=== PATIENT | male | born 1975 | race Caucasian/White ===

== ENCOUNTER 2024-08-01 20:33 | Observation (INO) | payer OTHER, SELFPAY ==
[2024-08-01] VITALS (8 sets, daily range): BP systolic 118–170; BP diastolic 85–102; BMI 28.8; BMI 29.6
--- NOTE | 2024-08-01 16:21 | ED.GENMED ---
History of Present Illness
General
Chief Complaint: Fever
Source: patient
Exam Limitations: none
Time Seen by Provider: 08/01/24 15:54
Nursing documentation reviewed up to this point in time: agreed with
History of Present Illness
History of Present Illness:
pt is a 48 y/o M with no chronic medical problems
9 days fever, congestion, cough, sore throat, fatigue, bodyaches
last temp was 102 this am at 9 am and he took motrin
he has no significant sob or pleuritic pain
[facility] and pulse ox was 92% and he was sent here
denies vomiting/diarrhea
having some sputum which is yelliwhs/brown
feels rattling in his chest
Past History
Past History
ED Past Medical History: None
ED Past Surgical History: None
Social History
Tobacco: Non-smoker
Alcohol: None
Drug: None
Personal:
Living: with family
Review of Systems
Review of Systems
Allergies reviewed?: Yes
All Other Systems: Not applicable
Phy Exam
Physical Exam
Physical Exam:
GENERAL: Alert , in no apparent distress, looks well
EYE: pupils equal and reactive
NECK: Supple
ENT: b/l TM s clear, pharynx erythematous but no tonsillar hypertrophy or exudates
CARDIAC: Regular rate and rhythm, no edema
LUNGS: rales bases b/l; occ wheezy cough; no resp distress; no tachypnea
ABDOMEN: Soft, without focal tenderness, no r/g, no cvat, normal bowel sounds
NEUROLOGICAL: Alert and oriented, no focal neuro deficits
SKIN: Warm and dry, skin intact.
MUSCULOSKELETAL: No edema, well perfused.
PSYCH: Normal and appropriate interaction.
Course
Orders/Labs/Results
Orders:
Orders
08/01/24 Dinner
Regular
At Your Request: Full Participation
08/01/24 15:54
Chest [CR Chest - 2 Views ] Urgent
Comment:
Reason For Exam: cough, SOB
08/01/24 16:05
COVID-19 Antigen Urgent
Source: Nasal Swab
Complete Blood Count/With Diff Urgent
Comprehensive Metabolic Panel Urgent
Lactate Level [Lactic Acid] Urgent
INF RAPID [Influenza A+B Rapid Molecular] Urgent
ENA Source: Nasal Swab
Specimen Description:
08/01/24 16:10
EKG [Electrocardiogram (*1)] Urgent
Reason for Study: Fatigue / Weakness
EKG- Treatment ONCE
D-Dimer Urgent
08/01/24 18:36
Acetaminophen [Tylenol] 1,000 mg PO NOW STA
Ibuprofen [Motrin] 800 mg PO NOW STA
08/01/24 18:37
Amoxicillin 875 mg/Clav 125 mg [Augmentin 875 mg/125 mg] 1 tablet PO NOW STA
Azithromycin [Zithromax] 500 mg PO NOW STA
08/01/24 18:46
Blood Culture Urgent
ENA Source: Blood/Venous
Specimen Description:
08/01/24 19:02
Albuterol Nebs [Ventolin Nebules] 2.5 mg INH R NOW STA
08/01/24 20:19
Admit/Transfer Patient As Directed
Co-Sign Provider:
Level of Care: Observation services
Assign to:: Medical/Surgical
Physician / Group: yovany
Diagnosis: sepsis viral/bacterial bronchitis
PRN Pain Medication Management As Directed
May give lesser potent ordered pain med per pt: Yes
preference::
Protocol:: Medication orders for pain may be administered in a
manner that supports deferring to patient preference
when the pt is:
- Requesting an ordered lesser potent pain medication.
Least to most potent pain medications are defined
as: acetaminophen < NSAID < tramadol < opioids
(morphine, oxycodone, hydromorphone).
- Requesting a lesser dose of the same medication IF
ORDERED.
- Requesting a less intrusive route of administration
if both routes are prescribed by the provider (PO <
IV).
08/01/24 20:21
Code Status As Directed
Resuscitation Status: Full Code
08/01/24 21:09
0.9% Sodium Chloride 1000 ml [Nss] 1,000 ml IV 100 mls/hr
Acetaminophen [Tylenol] 650 mg PO Q4HPRN PRN
Guaifenesin [Mucinex] 1,200 mg PO Q12
Ibuprofen [Motrin] 400 mg PO Q6HPRN PRN
Pantoprazole [Protonix] 40 mg PO DAILYPRN PRN
08/01/24 21:09
Activity As Directed
Activity Level: As Tolerated
Vital Signs As Directed
Frequency: Per unit guidelines
DX Deep Vein Thrombosis Video Routine
08/01/24 21:56
Respiratory Culture/Gram Stain Urgent
ENA Source: Sputum
Specimen Description:
Date Specimen was Collected: 08/01/24
Time Specimen was Collected: 21:54
08/01/24 22:00
CefTRIAXone [Rocephin] 1,000 mg IV Q24H
08/02/24 07:35
Complete Blood Count/With Diff IN AM
Comprehensive Metabolic Panel IN AM
08/02/24 08:00
Heparin 5,000 units SC Q12
08/02/24 18:00
Azithromycin 500 mg/250 ml [Zithromax Infusion] 500 mg in 250 ml IV Q24H
Abnormal Lab Results
08/01/24
16:05
WBC 13.0 H 10^3/uL
(4.8-10.8)
Abs Immat Gran (auto) 0.1 H 10^3/uL
(0-0.05)
Absolute Neuts (auto) 9.0 H 10^3/uL
(1.4-6.5)
Absolute Monos (auto) 1.6 H 10^3/uL
(0.1-0.6)
Immature Gran % 0.8 H %
(0-0.5)
Lymphocytes % 16.6 L %
(20.5-51.1)
Monocytes % 12.6 H %
(1.7-9.3)
08/01/24 16:05
08/01/24 16:05
Vital Signs
Initial and Last Documented VS:
Initial Vital Signs
Temp Pulse Resp BP Pulse Ox
37.4 C 108 16 170/102 94
08/01/24 14:21 08/01/24 14:21 08/01/24 14:21 08/01/24 14:21 08/01/24 14:21
Last Documented Vital Signs
Temp Pulse Resp BP Pulse Ox
37.8 C 104 18 120/84 95
08/02/24 15:13 08/02/24 15:13 08/02/24 15:13 08/02/24 15:13 08/02/24 15:13
MDM/Problems Addressed
Differential Diagnosis Includes:
pna, PE, bacteremia, reactive airway
MDM/Problems Addressed:
48 y/o M no pmh
9 days of fevers he says, cough, cold sypmtoms
temp this mornig n102, treated with motrin
came afebrile but low pulse ox 91% no resp distress
crackles b/l, wheezes
then spike dtemp while here
cxr is not impressive at all but he clinically looks like pna; flu and covid neg
wbc 13
he was already given oral augmentin and azithro in anticipation for discharge but he is hypoxic when he walks and still febrile desptie meds and fluids; blood culture sent
*Critical Care Note
Total Time (30-74mins, 75-104mins- exclusive of procedures): Not Applicable
ED Attending Note
-
Portions of this chart may have been created with voice recognition software.� Occasional wrong word or��sound alike� substitutions may have occurred due to the inherent limitations of voice recognition software.
Discharge Plan
Departure
Patient Disposition: Admit
Date of Disposition: 08/01/24
Time of Disposition: 19:53
Admit to: Med/Surg
Presentation/result/management discussed w/ accepting MD/DO: Hospitalist
Condition: Fair
Covid-19: Negative COVID-19
Discharge Problem:
Pneumonia, Hypoxia
Interventions
Interventions:
*Risk Screen - Suicide Last Done: 08/01/24 14:26
*General Assessment Last Done: 08/01/24 17:26
*Neglect/Abuse Screening Last Done: 08/01/24 14:26
ED- Fall Risk Assessment Last Done: 08/01/24 21:12
*ED COVID-19 Vaccine History Last Done: 08/01/24 17:27
*Nursing Disposition Last Done: 08/01/24 21:12
ED- Neurological Assessment Last Done: 08/01/24 16:09
ED-Skin Assessment Last Done: 08/01/24 17:31
Discharge Date and Time
Discharge Date/Time: 08/01/24 21:13
[2024-08-01 16:29] LABS: % Basophils 0.5 % (0-2); % Eosinophils 0.7 % (0-6); % Immature Granulocytes 0.8 % (0-0.5); % Lymphocytes 16.6 % (20.5-51.1); % Monocytes 12.6 % (1.7-9.3); % Neutrophils 68.8 % (42.2-75.2); Absolute Basophils 0.1 10^3/uL (0-0.2); Absolute Eosinophils 0.1 10^3/uL (0-0.7); Absolute Immature Granulocytes 0.1 10^3/uL (0-0.05); Absolute Lymphocytes 2.2 10^3/uL (1.2-3.4); Absolute Monocytes 1.6 10^3/uL (0.1-0.6); Hematocrit 45.3 % (39.0-52.0); Hemoglobin 15.5 g/dL (13.0-18.0); Mean Corp Hgb Conc. 34.2 g/dL (33.0-37.0); Mean Corpuscular Hgb 30.2 pg (27.0-31.0); Mean Corpuscular Volume 88.1 fL (80.0-94.0); Mean Platelet Volume 9.2 fL (7.4-10.4); Nucleated Red Blood Cells % 0 % (-); Platelet Count 269 10^3/uL (130-400); Red Blood Cell Count 5.14 10^6/uL (4.70-6.10); Red Cell Dist. Width 12.9 % (11.5-14.5)
[2024-08-01 16:34] LABS: Lactic Acid 1.2 mmol/L (0.7-2.0)
[2024-08-01 16:42] LABS: ALT (SGPT) 34 U/L (0-50); AST (SGOT) 23 U/L (17-59); Albumin 4.1 g/dl (3.5-5.0); Alkaline Phosphatase 83 U/L (38-126); Blood Urea Nitrogen 16 mg/dl (9-20); Calcium 8.9 mg/dl (8.4-10.2); Carbon Dioxide 28 mmol/L (22-30); Chloride 102 mmol/L (98-107); Estimated Creatinine Clearance 83 ml/min; Glucose 83 mg/dl (70-99); Potassium 4.4 mmol/L (3.5-5.1); Sodium 140 mmol/L (135-145); Total Bilirubin 0.3 mg/dl (0.2-1.3); Total Protein 6.9 g/dl (6.3-8.2); eGFR > 60.00
[2024-08-01 16:53] LABS: COVID-19 Antigen Negative (Negative)
[2024-08-01 17:53] LABS: D-Dimer 0.42 ug/mlFEU (0.00-0.50)
[2024-08-01] MEDS: MOTRIN 800 MG PO (18:43)
[2024-08-01] MEDS: TYLENOL 1000 MG PO (18:44)
[2024-08-01] MEDS: AUGMENTIN 875 MG/125 MG 1 TABLET PO (18:44)
[2024-08-01] MEDS: ZITHROMAX 500 MG PO (18:44)
[2024-08-01] MEDS: VENTOLIN NEBULES 2.5 MG INH (19:13)
--- NOTE | 2024-08-01 20:24 | HPS.HSE ---
Family Physician
-
Family Physician: NOT KNOW UNKNOWN - PT DOES
Chief Complaint
-
fevers
History of Present Illness
48-year-old male without past medical history presenting with 9 days of fever, congestion, cough and sore throat and fatigue and bodyaches. He had temperature of 102 this morning. He is short of breath and has chest congestion and pressure when he
breathes in. He went to urgent care and his pulse ox was 92%. He denies nausea vomiting or diarrhea. He is having some productive sputum which is yellow and brown. He did have sore throat within the first few days but this has resolved.
Denies any history of cardiac or pulmonary problems
His spouse and kids also had a similar illness but milder.
Denies smoking or alcohol use.
Medical History
Past Medical History
Past Medical History: Reports None
Past Surgical History: Reports None
Social History
Tobacco: Non-smoker
Alcohol: None
Drug: None
Family History
Family History: Not pertinent
Allergies / Home Medications
Allergies reflects when Allergies were last updated in [employer].
Home Medications with original date entered in [employer]
Allergy/Medication List:
Allergies
Allergy/AdvReac Type Severity Reaction Status Date / Time
No Known Allergies Allergy Unverified 08/01/24 14:25
Home Medications
pantoprazole 40 mg tablet,delayed release 40 mg PO DAILYPRN PRN gerd 08/01/24
Review of Systems
-
History Source: Patient
A 12 point ROS was completed and negative except as noted: Yes
Constitutional: Reports No Symptoms
EENT: Reports No Symptoms
Respiratory: Reports See HPI
Cardiac: Reports No Symptoms
Abdomen/GI: Reports No Symptoms
: Reports No Symptoms
Musculoskeletal: Reports No Symptoms
Skin: Reports No Symptoms
Neurological: Reports No Symptoms
Endocrine: Reports No Symptoms
Hematologic/Lymphatic: Reports No Symptoms
Psych: Reports No Symptoms
Physical Exam
Vital Signs
Vital Signs
Temp Pulse Resp BP Pulse Ox
101.2 F H 107 22 133/85 93
08/01/24 19:54 08/01/24 20:01 08/01/24 20:01 08/01/24 20:01 08/01/24 20:01
Physical Exam
General: Well Developed, Well Nourished and No Apparent Distress
HEENT: NormoCephalic, Moist mucous membranes and Atraumatic
Respiratory: Clear
Cardiac: S1/S2 and Regular Rhythm; No Murmur or Rub
GI: Soft, Non Tender, Non Distended and Normal Bowel Sounds; No Organomegaly
Rectal: Deferred by Provider
Musculoskeletal: No Clubbing, No Cyanosis and No Edema
Skin: No Rash
Neuro: Nonfocal/grossly intact
Laboratory Results
-
08/01/24 16:05
08/01/24 16:05
Laboratory Results
Lactic Acid 1.2 mmol/L (0.7-2.0) 08/01/24 16:05
Total Bilirubin 0.3 mg/dl (0.2-1.3) 08/01/24 16:05
AST 23 U/L (17-59) 08/01/24 16:05
ALT 34 U/L (0-50) 08/01/24 16:05
Alkaline Phosphatase 83 U/L (38-126) 08/01/24 16:05
Data Reviewed
-
Lab Data: Labs Reviewed by me
Old Records: Reviewed
Impression/Plan
-
IMPRESSION:
PLAN:
# Sepsis (fever, tachycardia, leukocytosis) secondary to viral/bacterial PNA/bronchitis
-Patient with hypoxia
-Chest x-ray unremarkable
-D-dimer negative
-COVID and influenza negative
-Sputum culture
-Check blood cultures
-IV fluids
-Ceftriaxone/azithromycin
Full code
DVT prophylaxis�heparin
Regular diet
--- NOTE | 2024-08-01 21:14 | PTCARENOTE ---
Pt arrived to floor from ED via stretcher on 2LNC. Pt ambulated to bed with a stable gait. at bedside. VSS. Pt oriented to room, call bed with in reach. WIll review and follow plan of care.
[2024-08-01] MEDS: NSS 1000 IV (21:51)
[2024-08-01] MEDS: MUCINEX 1200 MG PO (21:51)
[2024-08-01] MEDS: STERILE WATER FOR INJECTION 10 ML IV (21:52)
[2024-08-01] MEDS: ROCEPHIN 1000 MG IV (21:53)
[2024-08-02] MEDS: TYLENOL 650 MG PO (04:59)
[2024-08-02 07:10] VITALS: BP 132/85
[2024-08-02] MEDS: HEPARIN 5000 UNITS SC ×2 (07:36→20:22)
[2024-08-02] MEDS: MUCINEX 1200 MG PO ×2 (07:36→20:23)
[2024-08-02 07:52] LABS: % Basophils 0.5 % (0-2); % Eosinophils 1.4 % (0-6); % Immature Granulocytes 0.7 % (0-0.5); % Lymphocytes 14.4 % (20.5-51.1); % Monocytes 9.4 % (1.7-9.3); % Neutrophils 73.6 % (42.2-75.2); Absolute Basophils 0.1 10^3/uL (0-0.2); Absolute Eosinophils 0.2 10^3/uL (0-0.7); Absolute Immature Granulocytes 0.1 10^3/uL (0-0.05); Absolute Lymphocytes 1.9 10^3/uL (1.2-3.4); Absolute Monocytes 1.2 10^3/uL (0.1-0.6); Absolute Neutrophils 9.4 10^3/uL (1.4-6.5); Hematocrit 43.4 % (39.0-52.0); Hemoglobin 14.7 g/dL (13.0-18.0); Mean Corp Hgb Conc. 33.9 g/dL (33.0-37.0); Mean Corpuscular Hgb 29.6 pg (27.0-31.0); Mean Corpuscular Volume 87.5 fL (80.0-94.0); Mean Platelet Volume 8.6 fL (7.4-10.4); Nucleated Red Blood Cells % 0 % (-); Platelet Count 264 10^3/uL (130-400); Red Blood Cell Count 4.96 10^6/uL (4.70-6.10); Red Cell Dist. Width 12.9 % (11.5-14.5); White Blood Cell Count 12.8 10^3/uL (4.8-10.8)
[2024-08-02 08:18] LABS: ALT (SGPT) 31 U/L (0-50); AST (SGOT) 24 U/L (17-59); Albumin 3.8 g/dl (3.5-5.0); Alkaline Phosphatase 89 U/L (38-126); Blood Urea Nitrogen 13 mg/dl (9-20); Calcium 8.3 mg/dl (8.4-10.2); Carbon Dioxide 24 mmol/L (22-30); Chloride 106 mmol/L (98-107); Estimated Creatinine Clearance 98 ml/min; Glucose 114 mg/dl (70-99); Potassium 4.4 mmol/L (3.5-5.1); Sodium 142 mmol/L (135-145); Total Bilirubin 0.4 mg/dl (0.2-1.3); Total Protein 6.7 g/dl (6.3-8.2); eGFR > 60.00
[2024-08-02] MEDS: NSS IV ×2 (08:41→16:14)
[2024-08-02] MEDS: TESSALON PERLES 200 MG PO ×2 (08:45→20:23)
--- NOTE | 2024-08-02 09:29 | CM ---
CM following re: discharge planning.
Reviewed pt's chart, met with pt.
Pt is a 48 year old male, admitted with OBS status and primary dx of Viral Bacterial Bronchitis. OBS status explained to the pt, form signed, placed on chart, pt has a copy.
Pt reports he lives with spouse and 3 children 18, 15 and 13 year of age in a 2[address], 3 steps to enter. Pt described himself as independent in all areas [employer], drives, works.
PCP: [facility].
Pharmacy: [facility]
D/C plan: home with no needs. Spouse to transport.
CM will follow with discharge plan updates as needed.
--- NOTE | 2024-08-02 11:30 | W.PN.HOSP.TC ---
Today's Communication/Plan
-
CT chest
c/w IV Abx
f/w blood and sputum cultures
Assessment / Plan
Assessment / Plan
Physical Exam
General: Well Developed, Well Nourished and No Apparent Distress
HEENT: Normocephalic, Moist mucous membranes and Atraumatic
Respiratory: bilateral wheezes with crackles heard ( ,ore in both bases)
Cardiac: S1/S2 and Regular Rhythm. Tachycardia.
GI: Soft, Non Tender, Non Distended and Normal Bowel Sounds; No Organomegaly
Rectal: No rectal bleeding
Musculoskeletal: No Clubbing, No Cyanosis and No Edema
Skin: No Rash
Neuro: Nonfocal/grossly intact
Psych: calm.
# Sepsis (fever, tachycardia, leukocytosis) secondary to viral/bacterial PNA/bronchitis
-Patient with hypoxia
-Chest x-ray unremarkable but lung exam is abnormal, I suspect B/L PNA/ infiltrates, will do CT Chest
He reports hx of pneumonia in the past but did not need hospitalization.
-D-dimer negative
-COVID and influenza negative
- WBC is coming down
-Sputum culture is pending
- follow with blood cultures
-good oral intake, no hypotension, will stop IV fluids
-Ceftriaxone/azithromycin
SaO2 remained normal on RA
# Cough
c/w Mucinex
Add Tessalon
# Sinus tachycardia
reactive he was noted to have borderline BP, will continue to monitor
# Full code
DVT prophylaxis�heparin
Regular diet
Total time spent to see the patient, examine the patient, review data and lab results, discuss treatment plan with the patient, nursing staff around 55 minutes
Anticipated Discharge: 24 - 48 hours
Subjective/Interval History
-
Date of Service: August 02, 2024
No fevers
Still cough
Objective Data
-
Labs:
Laboratory Results
08/02/24
07:35
WBC 12.8 H
Hgb 14.7
Hct 43.4
Plt Count 264
Sodium 142
Potassium 4.4
Chloride 106
Carbon Dioxide 24
BUN 13
Creatinine 0.9
Glucose 114 H
Calcium 8.3 L
Total Bilirubin 0.4
AST 24
ALT 31
Alkaline Phosphatase 89
Vital Signs:
Vital Signs
Temp Pulse Resp BP Pulse Ox
98.7 F 106 18 132/85 94
08/02/24 07:10 08/02/24 07:10 08/02/24 07:10 08/02/24 07:10 08/02/24 07:10
I&O
08/01/24 08/02/24 08/03/24
06:59 06:59 06:59
Intake Total 180 / 180
Balance 180 / 180
[2024-08-02] MEDS: MOTRIN 400 MG PO (13:22)
[2024-08-02 15:13] VITALS: BP 120/84
[2024-08-02] MEDS: ZITHROMAX INFUSION 250 IV (17:22)
[2024-08-02] MEDS: ROCEPHIN 1000 MG IV (21:23)
[2024-08-02] MEDS: STERILE WATER FOR INJECTION 10 ML IV (21:24)
[2024-08-02 23:43] VITALS: BP 124/84
[2024-08-03] MEDS: NSS IV (02:15)
[2024-08-03] MEDS: TESSALON PERLES 200 MG PO (07:52)
[2024-08-03] MEDS: MUCINEX 1200 MG PO (07:52)
[2024-08-03] MEDS: HEPARIN 5000 UNITS SC (07:53)
[2024-08-03 08:03] LABS: Hematocrit 42.1 % (39.0-52.0); Hemoglobin 14.2 g/dL (13.0-18.0); Mean Corp Hgb Conc. 33.7 g/dL (33.0-37.0); Mean Corpuscular Hgb 29.4 pg (27.0-31.0); Mean Corpuscular Volume 87.2 fL (80.0-94.0); Mean Platelet Volume 9.4 fL (7.4-10.4); Platelet Count 268 10^3/uL (130-400); Red Blood Cell Count 4.83 10^6/uL (4.70-6.10); Red Cell Dist. Width 12.8 % (11.5-14.5); White Blood Cell Count 7.1 10^3/uL (4.8-10.8)
[2024-08-03 08:14] VITALS: BP 142/97
[2024-08-03 08:39] LABS: Blood Urea Nitrogen 13 mg/dl (9-20); Calcium 8.2 mg/dl (8.4-10.2); Carbon Dioxide 27 mmol/L (22-30); Chloride 105 mmol/L (98-107); Estimated Creatinine Clearance 88 ml/min; Glucose 93 mg/dl (70-99); Potassium 4.6 mmol/L (3.5-5.1); Sodium 142 mmol/L (135-145); eGFR > 60.00
[2024-08-03] MEDS: STERILE WATER FOR INJECTION 20 ML IV (11:37)
[2024-08-03] MEDS: ROCEPHIN 2000 MG IV (11:37)
[2024-08-03] MEDS: FLUSH (NSS) 2 FLUSH IV (11:38)
--- NOTE | 2024-08-03 11:50 | W.PN.HOSP.TC ---
Addendum entered and electronically signed by Rosio Wu MD 08/03/24 15:23:
Addendum
Patient continues to feels better, ask about discharge, he wanted to go home
d/w regarding CT finding of fatty liver at length. Normal LFTs, he had lipid checked with his PCP, was told elevated, recommend to f/w PCP for further work up, HGB A1C and hyperlipidemia control. Recommended low fat diet and to loose weight. He
verbalized understanding.
Total discharge time spent to see the patient, examine the patient, review data and lab results, discuss discharge plan with patient, nursing staff around 65 minutes
Original Note:
Today's Communication/Plan
-
Increase Rocephin to 2 gm
Encourage ambulation
Follow with ID recommendations.
Assessment / Plan
Assessment / Plan
Physical Exam
General: Well Developed, Well Nourished and No Apparent Distress
HEENT: Normocephalic, Moist mucous membranes and Atraumatic
Respiratory: bilateral wheezes with crackles heard ( ,ore in both bases)
Cardiac: S1/S2 and Regular Rhythm. Tachycardia.
GI: Soft, Non Tender, Non Distended and Normal Bowel Sounds; No Organomegaly
Rectal: No rectal bleeding
Musculoskeletal: No Clubbing, No Cyanosis and No Edema
Skin: No Rash
Neuro: Nonfocal/grossly intact
Psych: calm.
# Sepsis (fever, tachycardia, leukocytosis) secondary to viral/bacterial PNA/bronchitis, resolved
He is feeling better
No fevers
No hypoxia
-Chest x-ray unremarkable
Chest CT left lower lobe pneumonia.
He reported hx of pneumonia in the past but did not need hospitalization.
-D-dimer negative
-COVID and influenza negative
- WBC normalized.
-Sputum culture is gabino.
-Blood culture: no growth
-Good oral intake, no hypotension, stopped IVF
-Ceftriaxone/azithromycin.
SaO2 remained normal on RA
Consulted iD, appreciate input.
# Hypoxia only, resolved.
# Cough
c/w Mucinex
Added Tessalon
# Sinus tachycardia
reactive he was noted to have borderline BP, no headache or chest pains.
# Full code
DVT prophylaxis�heparin
Regular diet
Total time spent to see the patient, examine the patient, review data and lab results, discuss treatment plan with the patient, nursing staff around 55 minutes
Anticipated Discharge: Within 24 hours
Subjective/Interval History
-
Date of Service: August 03, 2024
Doing better
less cough
No sob
No fevers
Objective Data
-
Labs:
Laboratory Results
08/03/24
07:26
WBC 7.1
Hgb 14.2
Hct 42.1
Plt Count 268
Sodium 142
Potassium 4.6
Chloride 105
Carbon Dioxide 27
BUN 13
Creatinine 1.0
Glucose 93
Calcium 8.2 L
Vital Signs:
Vital Signs
Temp Pulse Resp BP Pulse Ox
98.6 F 104 16 142/97 94
08/03/24 08:14 08/03/24 08:14 08/03/24 08:14 08/03/24 08:14 08/03/24 08:14
I&O
08/02/24 08/03/24 08/04/24
06:59 06:59 06:59
Intake Total 180 / 180 1200 / 1200
Balance 180 / 180 1200 / 1200
--- NOTE | 2024-08-03 12:24 | CON.ID ---
Consultation
-
Date/Time Consultation Requested: 6:59
Date/Time Consultation Performed: 08/03/24 12:24
Requesting Provider: Dr Wu
Performing Provider: Dr Jaurez
Reason for Consultation: Pneumonia, failed OP treatment
Chief Complaint / Past History
Chief Complaint
fevers
History of Present Illness
Mr Schwartz is a 48 year old male without significant past medical history who presented here 08/01 for a 9 day course of fevers, congestion, cough, pleuritic chest pain, sore throat, fatigue, myalgias. Recorded a T of 102. Hypoxemic at urgent care
to 92%, was directed to the hospital. No previous antibiotics. Cough with brown/yellow sputum. Sore throat has now resolved. Of note spouse and kids also had symptoms but less severe
Since arrival here Tmax 101.2 and downtrending, RR in the teens initially on 2L now weaned to room air, BP has been stable, on arrival wbc 13 now 7.1 hgb 14, plt 268, no L shift throughout but has had monocytosis, d-dimer normal, cr 1.1, lactic acid
1.2, t bili 0.4, ast 24, alt 31, alk phos 89, covid ag neg, CT chest w/o contrast: moderate LLL pneumonia, atelectasis vs scarring, sputum culture ususal resp gabino. On arrival started on azithromycin and ceftiraxone.
Past History
Additional Past Medical History:
none
Additional Past Surgical History:
none
Allergy History:
No Known Allergies Allergy (Unverified 08/01/24 14:25)
Medications Reviewed: Yes
Social History
Tobacco: Non-Smoker
Alcohol: None
Drug: None
Family History
Family History: Not Pertinent
Review of Systems
Review of Systems
General: Fever and Chills
All systems: All other systems were reviewed and were negative
Vital Signs
Temp Pulse Resp BP Pulse Ox
98.6 F 104 16 142/97 94
08/03/24 08:14 08/03/24 08:14 08/03/24 08:14 08/03/24 08:14 08/03/24 08:14
Physical Exam
Physical Exam
Constitutional: No Acute Distress
Cardiovascular: Regular Rate and S1/S2; Negative Murmur or Rub
Pulmonary: Clear and Symmetric; Negative Wheezes, Rales or Rhonchi
Gastrointestinal: Soft, Non Tender, Non Distended and Normal Bowel Sounds
Skin: Warm and Dry; Negative Rash or Jaundice
Lab / Diagnostic Study Results
08/03/24 07:26
08/03/24 07:26
Abs Immat Gran (auto) 0.1 10^3/uL (0-0.05) H 08/02/24 07:35
Absolute Neuts (auto) 9.4 10^3/uL (1.4-6.5) H 08/02/24 07:35
Absolute Lymphs (auto) 1.9 10^3/uL (1.2-3.4) 08/02/24 07:35
Absolute Monos (auto) 1.2 10^3/uL (0.1-0.6) H 08/02/24 07:35
Absolute Basos (auto) 0.1 10^3/uL (0-0.2) 08/02/24 07:35
Immature Gran % 0.7 % (0-0.5) H 08/02/24 07:35
Neutrophils % 73.6 % (42.2-75.2) 08/02/24 07:35
Lymphocytes % 14.4 % (20.5-51.1) L 08/02/24 07:35
Monocytes % 9.4 % (1.7-9.3) H 08/02/24 07:35
Eosinophils % 1.4 % (0-6) 08/02/24 07:35
Basophils % 0.5 % (0-2) 08/02/24 07:35
Lactic Acid 1.2 mmol/L (0.7-2.0) 08/01/24 16:05
Microbiology Results
Micro:
08/01/24 21:56 Respiratory Culture - Preliminary
Sputum Usual Respiratory Gabino
Gram Stain - Preliminary
08/01/24 18:46 Blood Culture - Preliminary
Blood/Venous No Growth in 24 hours- Final report to follow
08/01/24 16:05 Influenza Types A & B (ELZBIETA) - Final
Nasal Swab Negative for Influenza A & B, NAAT
Negative results must be combined with clinical observations
and patient history.
Nucleic Acid Amplification test (NAAT)performed on the
[employer] ID NOW platform.
Assessment / Plan
Community Acquired Pneumonia - improving
- sputum culture usual resp gabino,
- single blood culture was sent; mild pneumonia has a low prevalence of bacteremia- no need to send additional set
- influenza and covid ags negative
- four more days of cefdinir - first dose tomorrow
- final dose of azithromycin 500 mg PO today
stable for dc from ID perspective
--- NOTE | 2024-08-03 14:30 | W.DCSUMMARY ---
Discharge Summary
Discharge Data
Date of Admission: 08/01/24
Date of Discharge: 08/03/24
-
Pending Results: No
Hospital Course
48 years old male presented with history of cough, chest congestion, fevers and pleuritic chest pain for several days. He started to have cold-like symptoms with sore throat fatigue few days ago. He was having fevers at home. He was taking
Tylenol and ibuprofen at home. He denied taking antibiotics at home. He reported his family had symptoms but less severe. He was noted to have high fever at 101.2 upon arrival. He was initially put on oxygen but no documented hypoxia. His white
blood cell count was 13, normal lactic acid. Patient was admitted to the hospital. Chest x-ray did not show definitive infiltrate. Scan of the chest showed moderate left lower lobe pneumonia. Patient reported history of pneumonia in the past.
Patient was started on Zithromax and ceftriaxone. COVID and influenza screen were negative. Blood culture did not show any growth. Respiratory culture showed respiratory gabino. Blood culture did not show any growth. Patient started to improve.
White blood cell count went back to normal. He did not have recurrent fever. He was evaluated by infectious disease doctor and recommended to continue course of antibiotics orally at home. CAT scan of the chest showed incidental finding of
hepatic fatty infiltration. Discussed with patient encourage low-fat diet and to discuss with her the primary care doctor for further workup including lipid panel and hemoglobin A1c. Patient remained hemodynamically stable and was discharged home
in a stable condition. Patient was advised to follow-up with his a primary care doctor to repeat chest imaging studies to monitor resolution of pneumonia.
Discharge Plan
-
Patient Disposition: Home (Routine Discharge)
Discharge Diagnosis/Procedures: Community Acquired Pneumonia
Fatty hepatic infiltration.
You were seen by ID doctor, you received IV antibiotics.
You will need to follow with your primary care doctor to repeat chest imaging study in 2-4 weeks.
Diet: As tolerated
Referrals:
UNKNOWN - PT DOES,NOT KNOW [Family Provider] -
Prescriptions:
New
ibuprofen 400 mg Tablet
400 mg PO Q6HPRN PRN (Reason: fever alt with tylenol) Qty: 10 0RF
guaifenesin 600 mg Tablet Extended Release 12hr
1,200 mg PO Q12 Qty: 20 0RF
benzonatate 100 mg Capsule
200 mg PO BID Qty: 20 0RF
cefdinir 300 mg Capsule
300 mg PO Q12 Qty: 8 0RF
azithromycin [Zithromax] 500 mg tablet
500 mg PO DAILY Qty: 3 0RF
Continued
pantoprazole 40 mg tablet,delayed release (DR/EC)
40 mg PO DAILYPRN PRN (Reason: gerd)
Discharge Orders:
Discharge Patient (As Directed); Ordered 08/03/24
Ordered By: Rosio Wu
Discharge Date and Time
Print Language: BRITISH
[2024-08-03] MEDS: AFLURIA (36 mos+) 2024-2025 FORMULA 0.5 ML IM (14:38)
--- NOTE | 2024-08-03 14:38 | CM ---
CM following re: discharge planning.
Discharge order noted. Pt is aware and he stated his spouse will transport home.
No after care VN needs indicated.
D/C plan: home no needs.
[2024-08-03] MEDS: ZITHROMAX 500 MG PO (14:45)
[2024-08-03 15:44] VITALS: BP 138/90
== END 2024-08-03 15:45 | disposition home or self-care (01) ==
LOC: 3 WEST ACU 20:33
PROVIDERS: Physician Assistant; ADMITTING PHYSICIAN Hospitalist; ATTENDING PHYSICIAN Internal Medicine; CONSULT PHYSICIAN Student in an Organized Health Care Education/Training Program; EMERGENCY PHYSICIAN Student in an Organized Health Care Education/Training Program
DX: A41.9 Sepsis, unspecified organism (principal); J18.9 Pneumonia, unspecified organism; R50.9 Fever, unspecified; R05.9 Cough, unspecified; R06.02 Shortness of breath; R09.02 Hypoxemia; R53.83 Other fatigue; R09.89 Other specified symptoms and signs involving the circulatory and respiratory systems; J98.11 Atelectasis; K76.0 Fatty (change of) liver, not elsewhere classified; I45.10 Unspecified right bundle-branch block; R00.0 Tachycardia, unspecified; E78.5 Hyperlipidemia, unspecified; Z87.01 Personal history of pneumonia (recurrent); Z23 Encounter for immunization; Z11.52 Encounter for screening for COVID-19
CPT/HCPCS: 71046; 71250; 80048; 80053; 83605; 85025; 85027; 85379; 87040; 87070; 87205; 87502; 87811; 90686; 93005; 94640; 99285; G0008; G0378